=== PATIENT | female | born 1950 | race Caucasian/White ===

== ENCOUNTER 2018-06-05 16:42 | Emergency (ER) | payer MEDICARE, OTHER ==
--- NOTE | 2018-06-06 01:23 | ER ---
HPI: A 67-year-old lady here with complaints of having an irregular heartbeat last evening. She states that it just came on suddenly, and she did not feel like it was chest pain, just an irregular heartbeat, lasted about 2 hours. She has felt fine since. The patient states she does have history of atrial fibrillation. She is taking medication for it, namely flecainide, which she takes 50 mg b.i.d. she also takes metoprolol 50 mg a day. In addition, she takes levothyroxine for hypothyroidism and she takes a baby aspirin a day. She is not on any other blood thinners. She tells me that she also was given diltiazem several years ago to take when she would have an episode, but she never used it, and when it got old, she threw it away and never did get it refilled. The patient states that she has otherwise been in good health recently. No recent illness, and she has felt fine since the last evening. OBJECTIVE: GENERAL APPEARANCE: The patient is awake and alert. No obvious distress. VITAL SIGNS: Reviewed. Blood pressure is initially 150/67. She is afebrile. Pulse is 55, regular rate, respirations are 18, O2 sats are 100%. Physical exam, lungs are clear to auscultation. CARDIAC: Heart sounds distinct. S1, S2 present. Regular rate. No murmurs. Oral mucous membranes moist. Tonsils not enlarged or injected. Pharynx is not inflamed. ABDOMEN: Soft and nontender. SKIN: Warm and dry. STUDIES: An EKG was obtained showing a normal sinus rhythm. LABS: Tonight include a CBC which is normal. CMP shows just a slightly elevated BUN of 27, creatinine is also slightly up at 1.11. Electrolytes are good. Liver enzymes are fine. Her TSH is normal at 1.346. DIAGNOSIS: Atrial fibrillation, resolved upon arriving to the ER. TREATMENT PLAN: I advised the patient that she should get a refill of her diltiazem to take as needed if she has another episode and that she is to call her regular doctor or her residential construction instructor for this. She states that she will do this tomorrow. In the meantime, we discussed using Valsalva's maneuvers if she develops another episode. The patient states she has used this several times in the past, usually successfully. No further treatment is needed tonight. CRS/MODL /[id number]
== END 2018-06-05 18:03 | disposition home or self-care (01) ==
LOC: LB.ED 16:42
DX: I48.91 Unspecified atrial fibrillation (principal); E03.9 Hypothyroidism, unspecified; Z79.82 Long term (current) use of aspirin
CPT/HCPCS: 36415; 80053; 84443; 85025; 93005; 99284